=== PATIENT | female | born 1990 | race Caucasian/White ===

== ENCOUNTER 2019-07-16 19:44 | Emergency (ER) | payer MEDICAID, SELFPAY ==
[2019-07-16 19:56] VITALS: BP 127/79; PULSE 85; RESP 18; TEMP 36.7; O2SAT 99; BMI 20.3
--- NOTE | 2019-07-16 20:17 | W.ED.GENADLT ---
HPI - General Adult General: Chief complaint: Abdominal Pain Stated complaint: abd/back pain 2 months Time Seen by Provider: 07/16/19 20:06 History of Present Illness: HPI narrative: Patient complains of upper abdominal pain intermittently over the last couple months. Has tried some Prilosec and Zantac. Says is been hurting more today in her upper abdomen. Pain is been pretty consistent since Wednesday. is breast-feeding denies any vaginal problems MD complaint: abd pain Onset (ago): week(s) Location: abdomen Radiation: non-radiation Severity: moderate Severity scale (1-10): 4 Quality: aching Pain Consistency: intermittent Relieving factors: none Exacerbating factors: none Associated symptoms: Deny chest pain, dyspnea, headache(s), nausea or vomiting Review of Systems Const: Denies: fever, chills or body aches Eyes: Denies: change in vision or blurry vision ENMT: Denies: throat pain or nasal congestion Card: Denies: chest pain or shortness of breath on exertion Resp: Denies: shortness of breath, productive cough or non-productive cough GI: Reports: abdominal pain and heartburn/indigestion; Denies: nausea or vomiting Musc: Denies: extremity pain Neuro: Denies: headache Psych: Denies: anxiety or depression Tommie/Lymph: Denies: easy bruising PFSH ED PFSH: Social History Smoking and tobacco status: current every day smoker Physical Exam Const: COMMON NORMALS: no apparent distress, average body habitus and oriented x3 HENMT: COMMON NORMALS: normocephalic HEAD & SCALP: normal to inspection and normocephalic FACE & SINUS: normal facial exam Eye: COMMON NORMALS: conjunctivae normal GENERAL EYE: normal appearance of both eyes CONJUNCTIVA: Yes conjunctivae normal Neck/C-Spine: COMMON NORMALS: no JVD Chest: COMMONS NORMALS: inspection of chest normal Resp: COMMON NORMALS: normal respiratory effort and clear to auscultation bilaterally AUSCULTATION: clear to auscultation bilaterally Cardio: COMMON NORMALS: no JVD, regular rate and regular rhythm RATE: regular rate RHYTHM: regular rhythm GI: PALPATION: Yes tender (Upper epigastric) Extremity: COMMON NORMALS: normal to inspection and full ROM Neuro: COMMON NORMALS: oriented x3 Course Vital Signs: Vital signs: Vital Signs Temperature 98.0 F 07/16/19 19:56 Pulse Rate 85 07/16/19 19:56 Respiratory Rate 16 07/16/19 22:22 Blood Pressure 127/79 07/16/19 19:56 Pulse Oximetry 99 07/16/19 19:56 MDM - General Adult MDM Narrative: Medical decision making narrative: Case discussed with Dr. Naik, surgeon., by Dr. Echols. Patient has a distended gallbladder and a possibility of a stone or stricture in the common bile duct because it is dilated [address] abbasi felt that MRCP was not appropriate and ERCP needs to be done and patient will have to be transferred for evaluation and to have an ERCP done. Call placed to [facility] before 12:00 to speak with surgeon and spoke with Brittani she said the surgeon began back in touch with us meds now 1:15 and still not heard from surgeon we called Brittani back and she said she has a long list she is try to get contacted and still has not spoke to the surgeon yet patient appears to be doing fine receives received a total of 4 mg morphine Spoke with Dr. Ivan from [facility]. He understands level care is not available here at this facility. He accepts patient and will be a direct admission to the floor. Transfer paperwork has started Lab Data: Labs: Lab Results 07/16/19 07/16/19 07/16/19 Range/Units 20:33 20:33 20:33 WBC 6.6 (4.0-10.0) 10^3/ uL RBC 3.78 L (4.1-5.3) 10^6/u L Hgb 11.7 (11.5-15.3) g/dL Hct 35.7 L (37.0-47.0) % MCV 94.4 (81-99) fL MCH 31.0 (28.0-34.0) pg MCHC 32.8 (30.0-36.0) g/dL RDW 12.7 (12.1-15.1) % Plt Count 263 (130-400) 10^3/c mm MPV 11.4 H (7.4-10.4) fL Neut % (Auto) 54.3 % Lymph % (Auto) 29.1 % [place] % (Auto) 10.6 % Eos % (Auto) 5.3 % Baso % (Auto) 0.5 % Neut # (Auto) 3.6 (1.8-7.7) 10^3/u L Lymph # (Auto) 1.9 (0.8-4.8) 10^3/u L [place] # (Auto) 0.7 (0.2-0.9) 10^3/u L Eos # (Auto) 0.4 (0.0-0.8) 10^3/u L Baso # (Auto) 0.0 (0.0-0.1) 10^3/u L Nucleated RBC % (a uto) 0 % Nucleated RBCs # 0.0 /100WBC Sodium 138 (136-145) mmol/L Potassium 4.0 (3.5-5.1) mmol/L Chloride 103 (98-107) mmol/L Carbon Dioxide 22 (22-29) mmol/L Anion Gap 17.0 (5-19) BUN 16 (6-20) mg/dL Creatinine 0.8 (0.5-0.9) mg/dL GFR Calculation 84.2 L (90-130) mL/min Glucose 96 (65-115) mg/dL Calcium 9.9 (8.5-10.5) mg/dL Total Bilirubin 0.8 (0.15-1.2) mg/dL AST 438 H (0-32) U/L ALT 229 H (0-33) U/L Alkaline Phosphata se 284 H (35-105) IU/L Total Protein 7.5 (6.6-8.7) g/dL Albumin 4.5 (3.5-5.2) g/dL Globulin 3.0 (1.3-4.6) g/dL Lipase (13-60) U/L HCG, Qual (Negative) Urine Color (Yellow) Urine Appearance (CLEAR) Urine pH (5-7) Ur Specific Gravit y (1.005-1.030) Urine Protein (Negative) Urine Glucose (UA) (Normal) Urine Ketones (Negative) Urine Occult Blood (Negative) Urine Nitrate (Negative) Urine Bilirubin (NEGATIVE) Urine Urobilinogen (Negative) mg/dL Ur Leukocyte Milagros ase (Negative) Urine RBC (0-2) /hpf Urine WBC (0-5) /hpf Ur Squamous Epith Cells (0-5) Calcium Oxalate Cr ystal /hpf Urine Bacteria (NONE) Urine Mucus Hepatitis A IgM Ab Non-reactive (Nonreactive) Hep Bs Antigen Non-reactive (Nonreactive) Hep B Core IgM Ab Non-reactive (Nonreactive) Hepatitis C Antibo dy Non-reactive (Nonreactive) 07/16/19 07/16/19 07/16/19 Range/Units 20:33 20:40 20:40 WBC (4.0-10.0) 10^3/ uL RBC (4.1-5.3) 10^6/u L Hgb (11.5-15.3) g/dL Hct (37.0-47.0) % MCV (81-99) fL MCH (28.0-34.0) pg MCHC (30.0-36.0) g/dL RDW (12.1-15.1) % Plt Count (130-400) 10^3/c mm MPV (7.4-10.4) fL Neut % (Auto) % Lymph % (Auto) % [place] % (Auto) % Eos % (Auto) % Baso % (Auto) % Neut # (Auto) (1.8-7.7) 10^3/u L Lymph # (Auto) (0.8-4.8) 10^3/u L [place] # (Auto) (0.2-0.9) 10^3/u L Eos # (Auto) (0.0-0.8) 10^3/u L Baso # (Auto) (0.0-0.1) 10^3/u L Nucleated RBC % (a uto) % Nucleated RBCs # /100WBC Sodium (136-145) mmol/L Potassium (3.5-5.1) mmol/L Chloride (98-107) mmol/L Carbon Dioxide (22-29) mmol/L Anion Gap (5-19) BUN (6-20) mg/dL Creatinine (0.5-0.9) mg/dL GFR Calculation (90-130) mL/min Glucose (65-115) mg/dL Calcium (8.5-10.5) mg/dL Total Bilirubin (0.15-1.2) mg/dL AST (0-32) U/L ALT (0-33) U/L Alkaline Phosphata se (35-105) IU/L Total Protein (6.6-8.7) g/dL Albumin (3.5-5.2) g/dL Globulin (1.3-4.6) g/dL Lipase 42 (13-60) U/L HCG, Qual Negative (Negative) Urine Color Yellow (Yellow) Urine Appearance Clear (CLEAR) Urine pH 6.5 (5-7) Ur Specific Gravit y 1.015 (1.005-1.030) Urine Protein Trace (Negative) Urine Glucose (UA) Norm (Normal) Urine Ketones 1+ H (Negative) Urine Occult Blood 2+ H (Negative) Urine Nitrate Negative (Negative) Urine Bilirubin 2+ H (NEGATIVE) Urine Urobilinogen 1 H (Negative) mg/dL Ur Leukocyte Milagros ase Trace H (Negative) Urine RBC 0-4 H (0-2) /hpf Urine WBC 10-15 H (0-5) /hpf Ur Squamous Epith Cells 5-10 H (0-5) Calcium Oxalate Cr ystal 0-4 H /hpf Urine Bacteria Trace (NONE) Urine Mucus 2+ Hepatitis A IgM Ab (Nonreactive) Hep Bs Antigen (Nonreactive) Hep B Core IgM Ab (Nonreactive) Hepatitis C Antibo dy (Nonreactive) Discharge Plan Discharge Patient Disposition: Xfer Short-Term Hosp Clinical Impression: Cholelithiases Qualifiers: Cholelithiasis location: gallbladder Cholecystitis presence: without cholecystitis Biliary obstruction: without biliary obstruction Qualified Code(s): K80.20 - Calculus of gallbladder without cholecystitis without obstruction Condition: Stable Referrals: Ijeoma Lopez MD [Primary Care Provider] - Coding Level of Care Code ED Spindle Plumber for g Fwd Exam Comprehensive
[2019-07-16] MEDS: lidocaine 2% viscous 15 ML, aluminum-mag hydrox-simethicon 30 ML, sucralfate oral liq 1 GM PO (20:41)
[2019-07-16 20:43] LABS: Basophils % 0.5 %; Eosinophils # 0.4 10^3/uL (0.0-0.8); Eosinophils % 5.3 %; Hematocrit 35.7 % (37.0-47.0); Hemoglobin 11.7 g/dL (11.5-15.3); Lymphocytes # 1.9 10^3/uL (0.8-4.8); Lymphocytes % 29.1 %; Mean Corpuscular HGB Conc 32.8 g/dL (30.0-36.0); Mean Corpuscular Volume 94.4 fL (81-99); Mean Platelet Volume 11.4 fL (7.4-10.4); Monocytes # 0.7 10^3/uL (0.2-0.9); Monocytes % 10.6 %; Neutrophils # 3.6 10^3/uL (1.8-7.7); Neutrophils % 54.3 %; Nucleated Red Blood Cells % 0 %; Platelet Count 263 10^3/cmm (130-400); Red Blood Count 3.78 10^6/uL (4.1-5.3); Red Cell Distribution Width 12.7 % (12.1-15.1); White Blood Count 6.6 10^3/uL (4.0-10.0)
[2019-07-16 20:56] LABS: Alanine Aminotransferase 229 U/L (0-33); Albumin Level 4.5 g/dL (3.5-5.2); Alkaline Phosphatase 284 IU/L (35-105); Aspartate Amino Transferase 438 U/L (0-32); Blood Urea Nitrogen 16 mg/dL (6-20); Calcium 9.9 mg/dL (8.5-10.5); Carbon Dioxide 22 mmol/L (22-29); Chloride 103 mmol/L (98-107); Glomerular Filtration Rate 84.2 mL/min (90-130); Glucose 96 mg/dL (65-115); Sodium 138 mmol/L (136-145); Total Bilirubin 0.8 mg/dL (0.15-1.2); Total Protein 7.5 g/dL (6.6-8.7)
--- NOTE | 2019-07-16 21:17 | CTR_ITS ---
PROCEDURE INFORMATION: Exam: CT Abdomen And Pelvis With Contrast Exam date and time: 07/16/2019 9:54 PM Age: 28 years old Clinical indication: Nausea and vomiting; Abdominal pain; Epigastric TECHNIQUE: Imaging protocol: Computed tomography of the abdomen and pelvis with intravenous contrast. Total DLP: 496.54 mGy-cm Radiation optimization: All CT scans at this facility use at least one of these dose optimization techniques: automated exposure control; mA and/or kV adjustment per patient size (includes targeted exams where dose is matched to clinical indication); or iterative reconstruction. Contrast material: OMNI 300; Contrast volume: 95 ml; Contrast route: IV; COMPARISON: No relevant prior studies available. FINDINGS: Liver: Unremarkable.No mass. Gallbladder and bile ducts: There is cholelithiasis. There is mild intrahepatic biliary duct dilatation. Gallbladder wall appears mildly thickened. No definite pericholecystic inflammatory change. The common bile duct is dilated measuring 7 mm. No definite stone in the common bowel duct. The gallbladder is moderately distended. Pancreas: Normal. No ductal dilation. Spleen: Normal. No splenomegaly. Adrenals: Normal. No mass. Kidneys and ureters: There is no evidence of hydronephrosis. There is punctate nephrolithiasis. Stomach and bowel: The loops of bowel have an appropriate appearance. No ileus or obstruction. Appendix: A normal appendix is identified. Intraperitoneal space: Unremarkable. No free air. No significant fluid collection. Vasculature: Unremarkable.No abdominal aortic aneurysm. Lymph nodes: Unremarkable.No enlarged lymph nodes. Bladder: Unremarkable as visualized. Reproductive: There are varicosities in the pelvis compatible with pelvic congestion syndrome. Bones/joints: Unremarkable. No acute fracture. Soft tissues: There is a fat-containing umbilical hernia. CT/CT abdomen pelvis w con* [id number] IMPRESSION: Distended gallbladder cholelithiasis with mild gallbladder wall thickening concerning for early cholecystitis. There is mild biliary duct dilatation. Ultrasound may be helpful for further characterization. Radiation Dose CTDIVOL = (mGy): DLP = 496.54 (mGy-cm)
[2019-07-16 21:18] LABS: Hepatitis A Antibody IgM. Non-Reactive (Nonreactive); Hepatitis B Core IgM Non-Reactive (Nonreactive); Hepatitis B Surface Antigen. Non-Reactive (Nonreactive); Hepatitis C Virus Antibody Non-Reactive (Nonreactive)
[2019-07-16 21:42] LABS: HCG Qualitative Urine. Negative (Negative)
[2019-07-16 21:54] LABS: Glucose Urine UA Norm (Normal); Protein Urine Trace (Negative); Specific Gravity, Urine 1.015 (1.005-1.030); Urine Appearance Clear (CLEAR); Urine Color Yellow (Yellow); pH Urine 6.5 (5-7)
[2019-07-16 21:55] LABS: Add Urine Microscopic? YES; Bilirubin Urine 2+ (NEGATIVE); Blood Urine 2+ (Negative); Ketones Urine 1+ (Negative); Leukocyte Esterase Urine Trace (Negative); Nitrate Urine Negative (Negative); Urobilinogen Urine 1 mg/dL (Negative)
[2019-07-16] MEDS: iohexol 300 mg/mL 100 mL Btl IV (22:01)
[2019-07-16 22:05] LABS: Bacteria Urine TRACE; Calcium Oxalate Crystals Urine 0-4 /hpf; Mucus Urine 2+; RBC Urine 0-4 /hpf (0-2)
[2019-07-16 22:06] LABS: Add Urine Culture? No
[2019-07-16] MEDS: sodium chloride 0.9% 1,000 ML 125 ML IV (22:15)
[2019-07-16] MEDS: ondansetron 2 mg/ML SDV 2 mL 4 MG IVP (22:16)
[2019-07-16 22:22] VITALS: RESP 16
[2019-07-16] MEDS: morphine 4 mg/mL SDV 1 mL IVP (22:22)
[2019-07-16 23:31] LABS: Lipase 42 U/L (13-60)
--- NOTE | 2019-07-17 00:36 | PC.NURSE ---
Patient Medication Admin Patient morphine given in split doses. 2mg given at 2222, second dose of 2mg given at 1233. Provider was notified. This nurse was unable to document split dose in medical lab technician.
[2019-07-17 02:03] VITALS: BP 122/74; PULSE 72; RESP 16; TEMP 36.8; O2SAT 98
== END 2019-07-17 03:25 | disposition short-term general hospital (02) ==
PROVIDERS: Emergency Medicine; Emergency Provider Nurse Practitioner Family; Family Provider Family Medicine; PCP Family Medicine
DX: K80.20 Calculus of gallbladder without cholecystitis without obstruction (principal); F17.200 Nicotine dependence, unspecified, uncomplicated
CPT/HCPCS: 74177; 80053; 80074; 81001; 81025; 83690; 85025; 96360; 96361; 96374; 96375; 99283; J2270; J2405; J7030; Q9967

== ENCOUNTER 2023-02-06 17:13 | Emergency (ER) | payer MEDICAID, SELFPAY ==
--- NOTE | 2023-02-06 17:20 | ECG_ITS ---
[facility] Test Date: 2023-02-06 Pat Name: Ijeoma Mukherjee Department: Room: Gender: Female Geriatric Social Worker: : 1990 Requested By: Andrzej Cruz Order Number: [id number] Valentina MD: Christian Dover M.D. Measurements Intervals [place]ley Rate: 74 P: 62 NH: 101 QRS: 85 QRSD: 90 T: -12 QT: 353 QTc: 392 Interpretive Statements SINUS RHYTHM WITH SHORT NH INTERVAL NONSPECIFIC T-WAVE ABNORMALITY No previous ECG available for comparison Electronically Signed On 02-07-2023 10:53:19 CDT by Christian Dover M.D. [email or web address] Sales Exchangeocean springs hospitalBirdland Softwareuniversity hospitals [facility].[employer]/store/OM/[id number]
[2023-02-06 17:23] VITALS: BP 107/75; PULSE 76; RESP 14; TEMP 36.8; O2SAT 98; BMI 19.9
--- NOTE | 2023-02-06 17:25 | XRR_ITS ---
PROCEDURE INFORMATION: Exam: XR Chest Exam date and time: 02/06/2023 6:08 PM Age: 32 years old Clinical indication: Chest pressure; Patient HX: Chest pain with SOB TECHNIQUE: Imaging protocol: Radiologic exam of the chest. Views: 1 view. COMPARISON: CT abdomen pelvis w con* [id number] 07/16/2019 10:56 PM FINDINGS: Lungs: Unremarkable. No consolidation. Pleural spaces: Unremarkable. No pleural effusion. No pneumothorax. Heart/Mediastinum: Unremarkable. No cardiomegaly. Bones/joints: Unremarkable. XR/XR chest 1V portable [id number] IMPRESSION: No acute findings.
[2023-02-06 17:56] LABS: Basophils # 0.1 10^3/uL (0.0-0.1); Basophils % 0.7 %; Eosinophils # 0.6 10^3/uL (0.0-0.8); Hematocrit 42.1 % (36-47); Lymphocytes # 2.2 10^3/uL (0.8-4.8); Lymphocytes % 24.6 %; Mean Corpuscular HGB Conc 32.5 g/dL (30-55); Mean Corpuscular Hemoglobin 32.1 pg (27-33); Mean Corpuscular Volume 98.6 fl (85-98); Mean Platelet Volume 11.8 fL (7.4-10.4); Monocytes # 0.6 10^3/uL (0.2-0.9); Monocytes % 6.1 %; Neutrophils # 5.68 10^3/uL (1.8-7.7); Neutrophils % 62.3 %; Nucleated Red Blood Cells % 0 %; Platelet Count 187 10^3/cmm (157-399); Red Blood Count 4.27 10^6/uL (3.85-5.65); Red Cell Distribution Width 11.9 % (12.1-15.1); White Blood Count 9.12 10^3/uL (3.29-11.43)
[2023-02-06 18:13] LABS: Alanine Aminotransferase 8 U/L (0-33); Albumin Level 4.9 g/dL (3.5-5.2); Alkaline Phosphatase 68 U/L (35-105); Anion Gap 14.7 (5-19); Aspartate Amino Transferase 13 U/L (0-32); Blood Urea Nitrogen 10 mg/dL (6-20); Calcium 9.4 mg/dL (8.5-10.5); Carbon Dioxide 23 mmol/L (22-29); Chloride 108 mmol/L (98-107); Globulin 2.1 g/dL (1.3-4.6); Glomerular Filtration Rate 71.7 mL/min (90-130); Glucose 88 mg/dL (65-115); Osmolality Calculated 290 mOsm/kg (285-295); Potassium 4.7 mmol/L (3.5-5.1); Sodium 141 mmol/L (136-145); Total Bilirubin 0.2 mg/dL (0.15-1.2)
[2023-02-06 18:14] LABS: Troponin(5th) Baseline 6 ng/L (0-10)
--- NOTE | 2023-02-06 19:25 | ECG_ITS ---
[facility] Test Date: 2023-02-06 Pat Name: Ijeoma Mukherjee Department: Room: Gender: Female Manufacturing Millwright: : 1990 Requested By: Chano Rodrigez Order Number: [id number] Valentina MD: Christian Dover M.D. Measurements Intervals [place] Rate: 66 P: 31 OR: 97 QRS: 84 QRSD: 89 T: 57 QT: 396 QTc: 415 Interpretive Statements SINUS RHYTHM WITH SHORT OR INTERVAL NONSPECIFIC T-WAVE ABNORMALITY Compared to ECG 02/06/2023 17:20:13 No significant changes Electronically Signed On 02-07-2023 10:56:04 CDT by Christian Dover M.D. [email or web address] medical [email or web address] [email or web address]/[id number]
--- NOTE | 2023-02-06 19:25 | ED_ITS ---
HPI - Chest Pain General: Chief Complaint: Chest Pain Stated Complaint: chest pain Time Seen by Provider: 02/06/23 18:04 Source: patient History of Present Illness: 32-year-old female complaining of chest discomfort, mild shortness of breath. No cough. No fever. It seemed to begin last night. No long car trips, no swollen legs. She does not believe she is . MD complaint: chest pain Associated symptoms: Reports dyspnea, nausea and palpitations; Deny abdominal pain, fever(s) or vomiting Review of Systems Const: Denies: fever(s) Card: Reports: chest pain and palpitations Resp: Reports: dyspnea; Denies: productive cough or non-productive cough GI: Reports: nausea; Denies: abdominal pain or vomiting Psych: Reports: anxiety PFSH ED PFSH: Medical History (Updated 02/06/23 @ 19:49 by Mao Phelps DO) Psychiatric care Social History (Updated 04/03/21 @ 13:24 by Tayo Schmid LPN) Smoking and tobacco status: current every day smoker cigarettes Packs smoked per day: 1 Years cigarettes smoked: 16 Quit status (tobacco): has tried quititng Number of times tried to quit tobacco: 10 Second hand smoke exposure: Yes Physical Exam Const: COMMON NORMALS: no acute distress GENERAL APPEARANCE: cooperative and anxious; not ill appearing and not frail appearing HENMT: COMMON NORMALS: normocephalic, atraumatic and Normal external nose p resent HEAD & SCALP: normocephalic and atraumatic FACE & SINUS: normal facial exam and face symmetric NOSE: Normal external nose present Eye: COMMON NORMALS: Equal, round and reactive pupils present and EOMs intact bilaterally PUPIL: Yes Equal, round and reactive pupils present Neck/C-Spine: GENERAL: Yes trachea midline Chest: CHEST: Yes Symmetrical chest wall rise Resp: COMMON NORMALS: normal respiratory effort, No retractions, No use of accessory muscles and clear to auscultation bilaterally AUSCULTATION: clear to auscultation bilaterally Cardio: COMMON NORMALS: regular rate and regular rhythm RATE: regular rate RHYTHM: regular rhythm GI: COMMON NORMALS: Normal to inspection, nondistended, normoactive bowel sounds present Extremity: COMMON NORMALS: no pedal edema Neuro: JOSE COMA SCALE: document GCS findings Dierks coma scale eye opening: Spontaneous Jose coma scale verbal response: Orientated Dierks coma scale motor response: Obey commands Jose coma scale total score: 15 SENSORY EXAM: Yes extremities (intact) Psych: COMMON NORMALS: speech normal SPEECH: Yes normal speech Skin: COMMON NORMALS: no rashes or lesions noted GENERAL SKIN EXAM: no rashes or lesions noted Course Vital Signs: Vital signs: Vital Signs Temperature 98.2 F 02/06/23 17:23 Pulse Rate 76 02/06/23 17: Respiratory Rate 14 02/06/23 17: Blood Pressure 107/75 02/06/23 17:23 Pulse Oximetry 98 02/06/23 17:23 Oxygen Delivery Me thod Room Air 02/06/23 17:23 MDM - Chest Pain Medical Decision Making Vital signs are stable. EKG shows a sinus rhythm with a rate of 66, normal axis. AL interval is mildly short. No acute ST wave changes. No tachycardia. Her pulse ox is 97% and above. Chest x-ray is negative. Troponin is 6. hCG is negative. Chest x-ray is negative. She will be allowed discharge. No specific cause of chest discomfort identified. Lab Data 02/06/23 17:46 02/06/23 17:46 Radiology Impressions Chest X-Ray 02/06/23 17:25 IMPRESSION: No acute findings. Laboratory Results WBC 9.12 10^3/uL (3.29-11.43) 02/06/23 17:46 RBC 4.27 10^6/uL (3.85-5.65) 02/06/23 17:46 Hgb 13.70 g/dL (11.27-16.99) 02/06/23 17:46 Hct 42.1 % (36-47) 02/06/23 17:46 MCV 98.6 fl (85-98) H 02/06/23 17:46 MCH 32.1 pg (27-33) 02/06/23 17:46 MCHC 32.5 g/dL (30-55) 02/06/23 17:46 RDW 11.9 % (12.1-15.1) L 02/06/23 17:46 Plt Count 187 10^3/cmm (157-399) 02/06/23 17:46 MPV 11.8 fL (7.4-10.4) H 02/06/23 17:46 Neut % (Auto) 62.3 % 02/06/23 17:46 Lymph % (Auto) 24.6 % 02/06/23 17:46 [place] % (Auto) 6.1 % 02/06/23 17:46 Eos % (Auto) 6.0 % 02/06/23 17:46 Baso % (Auto) 0.7 % 02/06/23 17:46 Neut # (Auto) 5.68 10^3/uL (1.8-7.7) 02/06/23 17:46 Lymph # (Auto) 2.2 10^3/uL (0.8-4.8) 02/06/23 17:46 [place] # (Auto) 0.6 10^3/uL (0.2-0.9) 02/06/23 17:46 Eos # (Auto) 0.6 10^3/uL (0.0-0.8) 02/06/23 17:46 Baso # (Auto) 0.1 10^3/uL (0.0-0.1) 02/06/23 17:46 Nucleated RBC % (auto) 0 % 02/06/23 17:46 Nucleated RBCs # 0.0 /100WBC 02/06/23 17:46 Sodium 141 mmol/L (136-145) 02/06/23 17:46 Potassium 4.7 mmol/L (3.5-5.1) 02/06/23 17:46 Chloride 108 mmol/L (98-107) H 02/06/23 17:46 Carbon Dioxide 23 mmol/L (22-29) 02/06/23 17:46 Anion Gap 14.7 (5-19) 02/06/23 17:46 BUN 10 mg/dL (6-20) 02/06/23 17:46 Creatinine 0.9 mg/dL (0.5-0.9) 02/06/23 17:46 GFR Calculation 71.7 mL/min (90-130) L 02/06/23 17:46 Glucose 88 mg/dL (65-115) 02/06/23 17:46 Calculated Osmolality 290 mOsm/kg (285-295) 02/06/23 17:46 Calcium 9.4 mg/dL (8.5-10.5) 02/06/23 17:46 Total Bilirubin 0.2 mg/dL (0.15-1.2) 02/06/23 17:46 AST 13 U/L (0-32) 02/06/23 17:46 ALT 8 U/L (0-33) 02/06/23 17:46 Alkaline Phosphatase 68 U/L (35-105) 02/06/23 17:46 Troponin T Baseline 6 ng/L (0-10) 02/06/23 17:46 Troponin T 120 Minute 6.00 ng/L (0-10) 02/06/23 19:32 Total Protein 7.0 g/dL (6.6-8.7) 02/06/23 17:46 Albumin 4.9 g/dL (3.5-5.2) 02/06/23 17:46 Globulin 2.1 g/dL (1.3-4.6) 02/06/23 17:46 HCG, Qual Negative (Negative) 02/06/23 17:46 Discharge Plan Discharge Patient Disposition: Home Clinical Impression: Chest pain Condition: Stable Prescriptions: New ketorolac 10 mg tablet 10 mg PO TID PRN (Reason: pain) Qty: 10 0RF No Action oxycodone-acetaminophen [Endocet] 5-325 mg tablet 1 tab PO BID PRN fluoxetine 20 mg capsule 20 mg PO DAILY 30 Days Qty: 30 3RF lamotrigine 100 mg tablet 100 mg PO BID 30 Days Qty: 60 3RF quetiapine 25 mg tablet 25 mg PO BID 30 Days Qty: 60 3RF Tylenol 325 mg Tablet 325 mg PO QID PRN (Reason: Pain) Discharge Orders: Discharge ED (Routine); Ordered 02/06/23 Ordered By: Mao Phelps Referrals: Jeison Menendez FNP [Primary Care Provider] - 4-7 days Patient Instructions: Chest Pain (ED) Activity Restrictions/Additional Instructions: No specific cause was identified for your chest pain on your workup this evening. Medication as directed. It should help with discomfort. Return for worsening pain, worsening shortness of breath despite treatment, other concerning symptoms. Watch for fevers, follow-up with your doctor next week. Coding Level of Care Code ED Scientific Investigator for Mahsa Coreas
[2023-02-06 19:41] LABS: HCG, Serum Qual Negative (Negative)
--- NOTE | 2023-02-06 20:00 | PC.NURSE ---
Spoke with Dr. Phelps, he said to cancel the IV fluids and to change the ketorolac from 15 mg IVP to 30 mg IM injection.
[2023-02-06] MEDS: ketorolac 30 mg/mL INJ IM (20:01)
[2023-02-06 20:22] LABS: Troponin 5 2HR Delta 0 ABS# (0-10)
== END 2023-02-06 20:21 | disposition home or self-care (01) ==
PROVIDERS: Emergency Medicine; Emergency Provider Emergency Medicine; PCP Nurse Practitioner Family
DX: R07.9 Chest pain, unspecified (principal); F17.210 Nicotine dependence, cigarettes, uncomplicated
CPT/HCPCS: 36415; 71045; 80053; 84484; 84703; 85025; 93005; 96372; 99285; J1885

== ENCOUNTER 2024-11-09 19:13 | Emergency (ER) | payer BC, SELFPAY ==
[2024-11-09 19:33] VITALS: BP 110/74; PULSE 77; RESP 14; TEMP 36.7; O2SAT 100; BMI 19.8
[2024-11-09 19:41] LABS: Basophils # 0.1 10^3/uL (0.0-0.1); Basophils % 0.9 %; Eosinophils # 0.3 10^3/uL (0.0-0.8); Eosinophils % 4.7 %; Hematocrit 36.1 % (36-47); Lymphocytes # 1.9 10^3/uL (0.8-4.8); Lymphocytes % 35.1 %; Mean Corpuscular Hemoglobin 31.2 pg (27-33); Mean Corpuscular Volume 94.5 fl (85-98); Mean Platelet Volume 11.4 fL (7.4-10.4); Monocytes # 0.3 10^3/uL (0.2-0.9); Monocytes % 6.3 %; Neutrophils # 2.83 10^3/uL (1.8-7.7); Neutrophils % 52.8 %; Nucleated Red Blood Cells % 0 %; Platelet Count 223 10^3/cmm (157-399); Red Blood Count 3.82 10^6/uL (3.85-5.65); Red Cell Distribution Width 11.9 % (12.1-15.1); White Blood Count 5.36 10^3/uL (3.29-11.43)
[2024-11-09 19:55] LABS: Alanine Aminotransferase 8 U/L (0-33); Albumin Level 4.3 g/dL (3.5-5.2); Alkaline Phosphatase 67 U/L (35-105); Anion Gap 14.1 (5-19); Aspartate Amino Transferase 12 U/L (0-32); Blood Urea Nitrogen 6 mg/dL (6-20); Calcium 9.3 mg/dL (8.5-10.5); Carbon Dioxide 24 mmol/L (22-29); Chloride 105 mmol/L (98-107); Creatinine Clr Calc Pharmacy 90.7868; Globulin 2.5 g/dL (1.3-4.6); Glomerular Filtration Rate 94.7 mL/min (90-130); Glucose 92 mg/dL (65-115); Osmolality Calculated 285 mOsm/kg (285-295); Potassium 4.1 mmol/L (3.5-5.1); Sodium 139 mmol/L (136-145); Total Bilirubin 0.2 mg/dL (0.15-1.2); Total Protein 6.8 g/dL (6.6-8.7)
--- NOTE | 2024-11-09 19:56 | ED_ITS ---
HPI - Headache 2 General: Chief Complaint: Headache Stated Complaint: Urgent Care Sent Headaches\Passed Out Time Seen by Provider: 11/09/24 19:47 History of Present Illness: 34-year-old female with recently diagnos ed POTS disease who presents to the emergency room after having multiple syncopal episodes and she had been having a headache. She is also had some nausea. She says she has a bit of a brain fog . She has an appoint with neurology in November. Vitals are near normal on presentation here. Headache seems to have resolved. Related Data Home Medications ?Medication ?Instructions ?Recorded ?Confirmed acetaminophen 325 mg tablet 325 mg PO QID PRN Pain 12/07/22 (Tylenol) oxycodone-acetaminophen 5 mg-325 1 tab PO BID PRN 04/3012/07/22 mg tablet (Endocet) Previous Rx's ?Medication ?Instructions ?Recorded fluoxetine 20 mg capsule 20 mg PO DAILY 30 days #30 c aps 12/07/22 lamotrigine 100 mg tablet 100 mg PO BID 30 days #60 ta bs 12/07/22 quetiapine 25 mg tablet 25 mg PO BID 30 days #60 tab s 12/07/22 ketorolac 10 mg tablet 10 mg PO TID PRN pain #10 ta bs 02/06/23 ondansetron 4 mg disintegrating 4 mg PO Q8H PRN nausea and 11/09/24 tablet vomiting #10 tabs Allergies Allergy/AdvReac Type Severity Reaction Status Date / Time No Known Allergies Allergy Verified 11/09/24 19:38 Review of Systems 2 Narrative: Constitutional symptoms: Negative except as documented in HPI. Skin symptoms: Negative except as documented in HPI. Eye symptoms: Negative except as documented in HPI. ENMT symptoms: Negative except as documented in HPI. Respiratory symptoms: Negative except as documented in HPI. Cardiovascular symptoms: Negative except as documented in HPI. Gastrointestinal symptoms: Negative except as documented in HPI. Genitourinary symptoms: Negative except as documented in HPI. Musculoskeletal symptoms: Negative except as documented in HPI. Neurologic symptoms: Negative except as documented in HPI. Psychiatric symptoms: Negative except as documented in HPI. Endocrine symptoms: Negative except as documented in HPI. PFSH ED 2 PFSH: Social History (Updated 04/03/21 @ 13:24 by Tayo Schmid LPN) Smoking and tobacco/nicotine status: current every day tobacco/nicotine user cigarettes Packs smoked per day: 1 Years cigarettes smoked: 16 Quit status (tobacco/nicotine): has tried quititng Number of times tried to quit tobacco: 10 Second hand smoke exposure: Yes Female Reproductive History: Date of last menstrual period: 11/07/24 Physical Exam 2 Narrative: EXAM NARRATIVE: General: Alert, no acute distress. Skin: Warm, dry. Head: Normocephalic, atraumatic. Neck: Supple, trachea midline. Eye: Extraocular movements are intact. Ears, nose, mouth and throat: mucosa moist. Cardiovascular: Regular, Normal peripheral perfusion. Respiratory: Lungs are clear to auscultation, respirations are non-labored, breath sounds are equal, Symmetrical chest wall expansion. Gastrointestinal: Soft, Nontender, Non distended Musculoskeletal: Normal ROM, no deformity. Neurological: Alert and oriented, No focal neurological deficit observed. Psychiatric: Cooperative, appropriate mood & affect. Course 2 Vital Signs: Vital signs: Vital Signs Temperature 98.0 F 11/09/24 19:33 Pulse Rate 80 11/09/24 20:00 Respiratory Rate 18 11/09/24 20:00 Blood Pressure 111/70 11/09/24 20:00 Pulse Oximetry 98 11/09/24 20:00 Oxygen Delivery Me thod Room Air 11/09/24 19:33 MDM - Headache Medical Decision Making Medical decision making: Differential diagnosis including but not limited to and based on the above HPI, review of systems and physical exam in this patient with syncope: Vasovagal, orthostatics hypotension, cardiac dysrhythmia, myocardial infarction, infection and hypotension, Orders placed to evaluate differential diagnosis based on the above differential, HPI and physical exam EKG: Time 1999. Rate 76. Normal sinus rhythm, No ST-T changes, no ectopy, normal HI & QRS intervals, This was reviewed and interpreted by myself the ER physician at 2004 Lab Review: Laboratory results were reviewed and interpreted by myself the emergency room physician. No leukocytosis. No anemia. No renal failure. No urinary tract infection. Liver enzymes are normal. I reviewed the patient's medical record. Reexamination: Patient remained stable. No increased work of breathing. No altered mental status. No focal motor deficits. Assessment and plan: POTS Syncope -IV fluids in the emergency room. - Discharged home - Discussed plan with patient. Answered any questions. - Evaluation and treatment of this problem were appropriate in the emergency setting. Lab Data 11/09/24 19:36 11/09/24 19:36 Laboratory Results WBC 5.36 10^3/uL (3.29-11.43) 11/09/24 19:36 RBC 3.82 10^6/uL (3.85-5.65) L 11/09/24 19:36 Hgb 11.90 g/dL (11.27-16.99) 11/09/24 19:36 Hct 36.1 % (36-47) 11/09/24 19:36 MCV 94.5 fl (85-98) 11/09/24 19:36 MCH 31.2 pg (27-33) 11/09/24 19:36 MCHC 33.0 g/dL (30-55) 11/09/24 19:36 RDW 11.9 % (12.1-15.1) L 11/09/24 19:36 Plt Count 223 10^3/cmm (157-399) 11/09/24 19:36 MPV 11.4 fL (7.4-10.4) H 11/09/24 19:36 Neut % (Auto) 52.8 % 11/09/24 19:36 Lymph % (Auto) 35.1 % 11/09/24 19:36 [place] % (Auto) 6.3 % 11/09/24 19:36 Eos % (Auto) 4.7 % 11/09/24 19:36 Baso % (Auto) 0.9 % 11/09/24 19:36 Neut # (Auto) 2.83 10^3/uL (1.8-7.7) 11/09/24 19:36 Lymph # (Auto) 1.9 10^3/uL (0.8-4.8) 11/09/24 19:36 [place] # (Auto) 0.3 10^3/uL (0.2-0.9) 11/09/24 19:36 Eos # (Auto) 0.3 10^3/uL (0.0-0.8) 11/09/24 19:36 Baso # (Auto) 0.1 10^3/uL (0.0-0.1) 11/09/24 19:36 Nucleated RBC % (auto) 0 % 11/09/24 19:36 Nucleated RBCs # 0.0 /100WBC 11/09/24 19:36 Sodium 139 mmol/L (136-145) 11/09/24 19:36 Potassium 4.1 mmol/L (3.5-5.1) 11/09/24 19:36 Chloride 105 mmol/L (98-107) 11/09/24 19:36 Carbon Dioxide 24 mmol/L (22-29) 11/09/24 19:36 Anion Gap 14.1 (5-19) 11/09/24 19:36 BUN 6 mg/dL (6-20) 11/09/24 19:36 Creatinine 0.7 mg/dL (0.5-0.9) 11/09/24 19:36 GFR Calculation 94.7 mL/min (90-130) 11/09/24 19:36 Glucose 92 mg/dL (65-115) 11/09/24 19:36 Calculated Osmolality 285 mOsm/kg (285-295) 11/09/24 19:36 Calcium 9.3 mg/dL (8.5-10.5) 11/09/24 19:36 Total Bilirubin 0.2 mg/dL (0.15-1.2) 11/09/24 19:36 AST 12 U/L (0-32) 11/09/24 19:36 ALT 8 U/L (0-33) 11/09/24 19:36 Alkaline Phosphatase 67 U/L (35-105) 11/09/24 19:36 Total Protein 6.8 g/dL (6.6-8.7) 11/09/24 19:36 Albumin 4.3 g/dL (3.5-5.2) 11/09/24 19:36 Globulin 2.5 g/dL (1.3-4.6) 11/09/24 19:36 Urine Color Yellow (Yellow) 11/09/24 20:05 Urine Appearance Clear (CLEAR) 11/09/24 20:05 Urine pH 8.5 (5-7) A 11/09/24 20:05 Ur Specific Inlet 1.009 (1.005-1.030) 11/09/24 20:05 Urine Protein Negative (Negative) 11/09/24 20:05 Urine Glucose (UA) Negative (Normal) 11/09/24 20:05 Urine Ketones Negative (Negative) 11/09/24 20:05 Urine Blood 2+ (Negative) A 11/09/24 20:05 Urine Nitrate Negative (Negative) 11/09/24 20:05 Urine Bilirubin Negative (Negative) 11/09/24 20:05 Urine Urobilinogen 0.2 mg/dL (Negative) 11/09/24 20:05 Ur Leukocyte Esterase Negative (Negative) 11/09/24 20:05 Urine RBC 0-2 /hpf (0-2) 11/09/24 20:05 Urine WBC 0-5 /hpf (0-5) 11/09/24 20:05 Ur Squamous Epith Cells 0-5 /hpf (0-5) 11/09/24 20:05 Amorphous Sediment Not Reportable 11/09/24 20:05 Urine Bacteria Trace /hpf (NONE) 11/09/24 20:05 Hyaline Casts 0-4 /lpf H 11/09/24 20:05 No radiology studies performed this visit Discharge Plan Discharge Patient Disposition: Home Clinical Impression: Postural orthostatic tachycardia syndrome [POTS], Headache Condition: Stable Prescriptions: New ondansetron 4 mg tablet,disintegrating 4 mg PO Q8H PRN (Reason: nausea and vomiting) Qty: 10 0RF No Action oxycodone-acetaminophen [Endocet] 5-325 mg tablet 1 tab PO BID PRN fluoxetine 20 mg capsule 20 mg PO DAILY 30 Days Qty: 30 3RF lamotrigine 100 mg tablet 100 mg PO BID 30 Days Qty: 60 3RF quetiapine 25 mg tablet 25 mg PO BID 30 Days Qty: 60 3RF Tylenol 325 mg Tablet 325 mg PO QID PRN (Reason: Pain) ketorolac 10 mg tablet 10 mg PO TID PRN (Reason: pain) Qty: 10 0RF Discharge Orders: Discharge ED (Routine); Ordered 11/09/24 Ordered By: Miranda Tran Referrals: Jeison Menendez FNP [Primary Care Provider] Discharge Diet: Usual diet Discharge Activity: Increase activity as tolerated Patient Instructions: POTS (Postural Orthostatic Tachycardia Syndrome) (ED), Opioid Safety, Pain Management Activity Restrictions/Additional Instructions: Thank you for choosing [facility] for your healthcare needs today. You have been screened and evaluated and felt safe for discharge. Health conditions do change or evolve sometimes and as such it is important that you follow up with your Primary Doctor to be re checked, 3-5 days is a general good time frame for follow up. You are always welcome to return to the ED for re assessment if your symptoms are worsening or you have new concerns Print Language: Bermudian Coding Level of Care Code ED Financial Sales Associate for Mahsa Coreas
[2024-11-09 20:00] VITALS: BP 111/70; PULSE 80; RESP 18; O2SAT 98
--- NOTE | 2024-11-09 20:00 | ECG_ITS ---
[facility] Test Date: 2024-11-09 Pat Name: Ijeoma Mukherjee Department: Room: Gender: Female Survey Research Analyst: : 1990 Requested By: Miranda Cruz Order Number: [id number] Valentina MD: Senthil Peoples M.D. Measurements Intervals [place] Rate: 76 P: 63 MS: 109 QRS: 87 QRSD: 88 T: 63 QT: 373 QTc: 420 Interpretive Statements SINUS RHYTHM WITH SHORT MS INTERVAL Compared to ECG 02/06/2023 19:04:26 T-wave abnormality no longer present Electronically Signed On 11-10-2024 14:51:30 CDT by Senthil Peoples M.D. [email or web address]
[2024-11-09] MEDS: ondansetron 2 mg/ML SDV 2 mL 4 MG IVP (20:05)
[2024-11-09] MEDS: sodium chloride 0.9% 1,000 ML 999 ML IV (20:06)
[2024-11-09 20:11] LABS: Bilirubin Urine Negative (Negative); Blood Urine 2+ (Negative); Glucose Urine UA Negative (Normal); Ketones Urine Negative (Negative); Leukocyte Esterase Urine Negative (Negative); Nitrate Urine Negative (Negative); Protein Urine Negative (Negative); Specific Gravity, Urine 1.009 (1.005-1.030); Urine Appearance Clear (CLEAR); Urine Color Yellow (Yellow); Urobilinogen Urine 0.2 mg/dL (Negative); pH Urine 8.5 (5-7)
[2024-11-09 20:14] LABS: Add Urine Microscopic? YES; Bacteria Urine Trace /hpf; Hyaline Casts Urine 0-4 /lpf; RBC Urine 0-2 /hpf (0-2); Squamous Epithelial Cell Urine 0-5 /hpf (0-5); WBC Urine 0-5 /hpf (0-5)
[2024-11-09 20:23] LABS: Add Urine Culture? No
[2024-11-09 20:49] VITALS: BP 124/83; PULSE 80; O2SAT 100
== END 2024-11-09 20:50 | disposition home or self-care (01) ==
PROVIDERS: Emergency Provider Emergency Medicine; PCP Nurse Practitioner Family
DX: G90.A Postural orthostatic tachycardia syndrome [POTS] (principal); R51.9 Headache, unspecified; F17.210 Nicotine dependence, cigarettes, uncomplicated; Z79.899 Other long term (current) drug therapy
CPT/HCPCS: 36415; 80053; 81001; 85025; 93005; 96374; 99284; J2405; J7030